=== PATIENT | male | born 1990 | race Two or more races ===

== ENCOUNTER 2021-10-27 15:15 | Outpatient (REF) | payer MEDICAID, SELFPAY ==
[2021-10-27 15:42] LABS: Binax Internal Control QC Valid; Binax Lot number: 9864; Binax Now Covid-19 Ag Negative (Negative)
== END 2021-10-27 15:16 | disposition home or self-care (01) ==
LOC: HO.LAB 15:15
PROVIDERS: Visit Provider Internal Medicine
DX: Z20.822 Contact with and (suspected) exposure to COVID-19 (principal)
CPT/HCPCS: C9803

== ENCOUNTER 2021-11-18 00:04 | Emergency (ER) | payer MEDICAID, SELFPAY ==
[2021-11-18] VITALS (11 sets, daily range): BP systolic 95–128; BP diastolic 57–79; PULSE 74–100; RESP 8–17; TEMP 37.6; O2SAT 95–99; BMI 22.8
--- NOTE | ~2021-11-18 | XR_ITS ---
EXAMINATION: XR HAND, RIGHT CLINICAL INFORMATION: Realignment COMPARISON: 11/18/2021 TECHNIQUE: AP and lateral views of the right hand. XR/XR hand RT 2V FINDINGS/IMPRESSION: On the lateral view there is residual dorsal dislocation of the suspected fourth and fifth metacarpals at the carpometacarpal articulation, though the degree of displacement appears decreased from prior. Redemonstrated overlying soft tissue swelling. There may be an associated vertically oriented fracture at the base of the fourth metacarpal.
--- NOTE | ~2021-11-18 | XR_ITS ---
EXAMINATION: XR HAND, RIGHT CLINICAL INFORMATION: Post reduction COMPARISON: 11/18/2021 TECHNIQUE: AP and lateral views of the right hand. XR/XR hand RT 2V FINDINGS/IMPRESSION: Overlying cast material obscures fine bony detail. There is improved alignment across the fourth and fifth carpometacarpal articulations compared to prior imaging; alignment now appears anatomic without appreciable residual dislocation. Adjacent soft tissue swelling redemonstrated. No definite acute fracture is seen.
--- NOTE | ~2021-11-18 | XR_ITS ---
EXAMINATION: X-RAY RIGHT HAND/WRIST CLINICAL INFORMATION: Punched brick wall, deformity, swelling and pain. COMPARISON: Radiograph of the right hand dated from 03/06/2014. TECHNIQUE: PA, oblique and lateral views of the right wrist/hand were obtained. FINDINGS: Swelling of the hypothenar surface of the hand. No unexpected radiopaque foreign bodies or subcutaneous air. Chronic deformity of the fourth metacarpal bone which is shortened and thickened. No acute fractures or malalignment. The carpal rows are maintained. The scapholunate interval is within normal limits. XR/XR hand wrist RT IMPRESSION: Hypothenar swelling. No acute fractures or malalignment.
--- NOTE | 2021-11-18 00:32 | PC.NURSE ---
COLD PACK GIVEN TO HAND FOR COMFORT.
--- NOTE | 2021-11-18 00:56 | ED_ITS ---
HPI - Extremity Problem General Chief complaint: Extremity Injury, Upper <ILDEFONSO Adamson Last Filed: 11/18/21 03:56> Stated complaint: hand injury <ILDEFONSO Adamson Last Filed: 11/18/21 03:56> Time Seen by Provider: 11/18/21 00:56 <ILDEFONSO Adamson Last Filed: 11/18/21 03:56> Source: patient <ILDEFONSO Adamson Last Filed: 11/18/21 03:56> Mode of arrival: ambulatory <ILDEFONSO Adamson Last Filed: 11/18/21 03:56> Limitations: no limitations <ILDEFONSO Adamson Last Filed: 11/18/21 03:56> History of Present Illness HPI Narrative: This is a 31-year-old male presenting to department with right-sided hand pain status post punching a wall at around midnight. Patient tells me he was aggravated and decided to punch a wall he immediately noted a deformity they the area pain and swelling. He reports 10/10 pain. Worse w/ movement better at rest. No numbness or tingling. He is still able to feel all his fingers on the right hand and wiggle them. He tells me he recently dislocated a bone in that hand it was reduced. He appears very uncomfortable. Right hand dominant <ILDEFONSO Adamson Last Filed: 11/18/21 03:56> MD Complaint: joint swelling and joint paint <ILDEFONSO Adamson Last Filed: 11/18/21 03:56> Onset (ago): hour(s) (1) <ILDEFONSO Adamson Last Filed: 11/18/21 03:56> Pain Consistency: constant <ILDEFONSO Adamson Last Filed: 11/18/21 03:56> Location: right <ILDEFONSO Adamson Last Filed: 11/18/21 03:56> Severity scale (1-10): >10 <ILDEFONSO Adamson Last Filed: 11/18/21 03:56> Quality: constant <ILDEFONSO Adamson Last Filed: 11/18/21 03:56> Radiation: none <ILDEFONSO Adamson Last Filed: 11/18/21 03:56> Relieving factors: nothing <ILDEFONSO Adamson Last Filed: 11/18/21 03:56> Exacerbating factors: nothing <ILDEFONSO Adamson Last Filed: 11/18/21 03:56> Associated symptoms: denies other symptoms <ILDEFONSO Adamson Last Filed: 11/18/21 03:56> Related Data Home medications: Previous Rx's Medication Instructions Recorded morphine 15 mg immediate release 15 mg PO Q8H PRN #6 tab 11/18/21 tablet <ILDEFONSO Adamson Last Filed: 11/18/21 03:56> Allergies/Adverse reactions: Allergies Allergy/AdvReac Type Severity Reaction Status Date / Time Fish Containing Products Allergy Unknown HIVES Verified 11/18/21 03:18 shellfish derived Allergy Unknown HIVES Verified 11/18/21 03:18 <ILDEFONSO Adamson Last Filed: 11/18/21 03:56> Review of Systems Verdana 4l Review of Systems: Verdana 4d Verdana 4d Constitutional : No Weight loss, No Fever, No Chills, No Fatigue, No Malaise Cardiovascular : No Chest Pain, No SOB, No Dyspnea on Exertion, No Orthopnea, No Edema, No Palpitations Respiratory : No Cough, No Sputum, No Wheezing GastrointestinalGastrointestinal : No Nausea, No Vomiting, No Diarrhea, No Constipation, No abdominal Pain, No Hematochezia, No Melena Genitourinary : No Dysuria, No Urinary Frequency, No Hematuria, Musculoskeletal : + joint pain, No Myalgias, + Joint Swelling Skin : No Skin Lesions, No rash Neuro : No Weakness, No Numbness, No Dizziness, No Headache All other systems reviewed and are negative <ILDEFONSO Adamson Last Filed: 11/18/21 03:56> Yes all other systems are reviewed and are negative <ILDEFONSO Adamson Last Filed: 11/18/21 03:56> [facility] Past Medical History Attestation statement: The following information was validated with the patient. <ILDEFONSO Adamson - Last Filed: 11/18/21 03:56> Source: old records reviewed and nursing notes reviewed <ILDEFONSO Adamson - Last Filed: 11/18/21 03:56> Medical History: Medical History Hand fracture, right <ILDEFONSO Adamson - Last Filed: 11/18/21 03:56> Social History Social History: Social History Advance Directives: No Advance Directives Information Provided: No <ILDEFONSO Adamson - Last Filed: 11/18/21 03:56> Physical Exam Verdana 4l Vital Signs: Verdana 4d Verdana 4d Vital Signs: Verdana 4d Verdana 4Bd Last Vital Signs Verdana 4d Nutritional Health Coach New 4d Nutritional Health Coach New 4d Temp 99.6 F 11/18/21 00:10 Nutritional Health Coach New 4d Pulse 84 11/18/21 04:55 Nutritional Health Coach New 4d Resp 16 11/18/21 04:55 BP 100/59 L 11/18/21 04:55 Pulse Ox 99 11/18/21 04:55 BMI result Body Mass Index 22.8 VSS <ILDEFONSO Adamson - Last Filed: 11/18/21 03:56> Vital Signs: Last Vital Signs Temp 99.6 F 11/18/21 00:10 Pulse 84 11/18/21 04:55 Resp 16 11/18/21 04:55 BP 100/59 L 11/18/21 04:55 Pulse Ox 99 11/18/21 04:55 BMI result Body Mass Index 22.8 <Jevon Robles MD - Last Filed: 11/18/21 05:10> Appearance: Alert.? Oriented X3.? No acute distress.?+ patient appears uncomfortable Head: Normocephalic, atraumatic, no step-offs or deformities Neck: Normal inspection.? Neck supple.? CVS: Normal heart rate and rhythm.? Pulses normal.? Respiratory: No respiratory distress.? Breath sounds normal.? Abdomen: Soft and nontender.? Skin: Skin warm and dry.? Normal skin color.? Normal skin turgor.? Extremities: No lower extremity edema.? No calf ttp. 5/5 strength to bilateral upper and lower extremities. Full rom to bilateral wrist and fingers. + pain to palpation overlying 3-5th metacarpals on right hand + deformity overlying 3-5th metabarpals on right hand. 2+ radial pulses bilaterally. Capilary refil < 2 seconds b/l. No evident ligament or tendon involvement Back: No midline tenderness, no C-spine tenderness, full range of motion, no CVA tenderness bilaterally Neuro: Oriented X 3.? No motor deficit.? No sensory deficit. <ILDEFONSO Adamson - Last Filed: 11/18/21 03:56> Course Reevaluation(s) Reevaluation #1: Initial x-ray reads swelling to hypothenar area of the right hand. To me it appears as though there is likely a sublux or dislocation will reach out to [facility] for clarification <ILDEFONSO Adamson - Last Filed: 11/18/21 03:56> Time: 00:42 <ILDEFONSO Adamson - Last Filed: 11/18/21 03:56> Reevaluation #2: Spoke with Dr. Rashid, will add an addendum appears as though there is a posterior dislocation of the 3rd and 4th CMC joints. Will TT Kath miranda. 01:35 Kath recommends reduction and outpatient follow up. <ILDEFONSO Adamson - Last Filed: 11/18/21 03:56> Time: 01:31 <ILDEFONSO Adamson - Last Filed: 11/18/21 03:56> Reevaluation #3: Conscious sedation done with Dr. Robles at the bedside. Received consent, respiratory at the bedside, time-out performed. Reduction done with flexion, and counter traction. Patient tolerated procedure well. Placed in ulnar gutter splint. <ILDEFONSO Adamson - Last Filed: 11/18/21 03:56> Time: 03:44 <ILDEFONSO Adamson - Last Filed: 11/18/21 03:56> Additional Reevaluation(s): Sign out given to Dr. Robles. Pending improvement and post reduction film. <ILDEFONSO Adamson - Last Filed: 11/18/21 03:56> MDM - Extremity (Nontraumatic) [facility] Narrative Medical decision making narrative: 0100 31 yo right hand dominant male presents with right hand pain s/p punching a wall. PE- full rom to bilateral wrist and fingers. There is pain to palpation overlying 3-5th metacarpals on right hand also a deformity overlying 3-5th metacarpal on right hand. 2+ radial pulses bilaterally. Capilary refil < 2 seconds b/l. No evident ligament or tendon involvement Plan- imaging, pain medication, likely reduction as this appears dislocated <ILDEFONSO Adamson - Last Filed: 11/18/21 03:56> Medical Records Attestation: I reviewed the patient's medical records. <ILDEFONSO Adamson - Last Filed: 11/18/21 03:56> Lab Data Attestation: I reviewed the patient's lab results. <ILDEFONSO Adamson - Last Filed: 11/18/21 03:56> Procedures Orthopedic Fracture Reduction Right hand 3rd, 4th MC dislocation: Time Out Performed: Yes <Jevon Robles MD - Last Filed: 11/18/21 05:10> Side: right <Jevon Robles MD - Last Filed: 11/18/21 05:10> Fracture Reduction Location: metacarpal (3rd, 4th MCP dislocation) <Jevon Robles MD - Last Filed: 11/18/21 05:10> Analgesia: procedural sedation <Jevon Robles MD - Last Filed: 11/18/21 05:10> Technique: direct manipulation and traction/counter-traction <Jevon Robles MD - Last Filed: 11/18/21 05:10> Post Reduction X-rays Demonstrate: anatomical reduction <Jevon Robles MD - Last Filed: 11/18/21 05:10> Post-reduction neuro exam: intact <Jevon Robles MD - Last Filed: 11/18/21 05:10> Post-reduction vascular exam: intact <Jevon Robles MD - Last Filed: 11/18/21 05:10> Splint Applied: Yes <Jevon Robles MD - Last Filed: 11/18/21 05:10> Additional Comments: The patient gave written informed consent for procedural sedation. Pre sedation physical exam was filled out prior to starting the procedure pain. A time-out was performed. The patient was given propofol a total of 120 mg IV. Using a direct male it in a mcclellan traction countertraction technique the MCP dislocations were reduced. Patient was placed in an ulnar gutter splint. Three layers of cast padding were used and ortho glass was used to make the splint. The patient tolerated the procedure well. The patient's neurologic exam post splint procedure is normal. The patient is fully recovered, he is awake and alert and ready for discharge. <Jevon Robles MD - Last Filed: 11/18/21 05:10> Critical Care Time Critical Care Time Critical Care Time: Yes <ILDEFONSO Adamson - Last Filed: 11/18/21 03:56> Total Critical Care Time: 45 <ILDEFONSO Adamson - Last Filed: 11/18/21 03:56> Attestation: Reviewing patient's history, physical exam reviewing imaging, speaking to Ortho, performing a bedside reduction with conscious sedation. <ILDEFONSO Adamson - Last Filed: 11/18/21 03:56> Discharge Plan Discharge Clinical Impression: Dislocation of carpometacarpal joint <ILDEFONSO Adamson - Last Filed: 11/18/21 03:56> Patient Disposition: Home, Self-Care <ILDEFONSO Adamson - Last Filed: 11/18/21 03:56> Additional Instructions: Take your medications as prescribed. If you were prescribed antibiotics today, it is important that you take your medication to their entirety, do not skip any doses, do not finish them early. Follow-up with your primary care provider this week. Call the on-call orthopedic surgeon, Dr. Hurst on Saturday to try to make a follow-up appointment within a week. Return to the emergency department with new or worsening symptoms. Such as severe pain, inability to wiggle fingers, swelling, numbness or tingling to hand. Or any new or worsening symptoms. In case of emergency call 911 <ILDEFONSO Adamson - Last Filed: 11/18/21 03:56> Prescriptions: New morphine 15 mg tablet 15 mg PO Q8H PRN (Reason: pain, severe) Qty: 6 0RF Rx Instructions: Patient can partially filled prescription upon request. <ILDEFONSO Adamson - Last Filed: 11/18/21 03:56> Referrals: Jag Hurst MD [Physician] - 2 days Physician,None [Primary Care Provider] - 2 days <ILDEFONSO Adamson - Last Filed: 11/18/21 03:56> Stand Alone Forms: Work/School Release <ILDEFONSO Adamson - Last Filed: 11/18/21 03:56>
--- NOTE | 2021-11-18 01:03 | PC.NURSE ---
REPORT GIVEN TO LANETTE CARTER WHO WILL RESUME PT CARE.
[2021-11-18] MEDS: oxyCODONE HCl Immed Release 5 MG TABLET PO (01:17)
[2021-11-18] MEDS: Lidocaine HCl 2 % MPF 5 ML VIAL SUBCUT ×3 (01:35)
--- NOTE | 2021-11-18 01:36 | PC.NURSE ---
lidocaine given by provider.
[2021-11-18] MEDS: LORazepam 0.5 MG TABLET PO (02:32)
[2021-11-18] MEDS: Nicotine 14 MG PATCH.TD24 TRANSDERMA (02:32)
--- NOTE | 2021-11-18 02:41 | PC.NURSE ---
pt hand attempted to reset, pending xray.
[2021-11-18] MEDS: propofoL 200 MG/20 ML VIAL 120 MG IVPUSH (03:37)
--- NOTE | 2021-11-18 03:44 | PC.NURSE ---
03:22pm time out completed, pt placed on n.c 2 liters. 03:25am 60mg of propofol, 111/69 90 15cap, 03:26 20mg of propofol, 3:28am 20mg of propofol, 3:29am 20mg of propofol. 102/62 99hr 19R 100 2l nc. Pt R hand was dislocated and placed back and splint by provider. Please see additional documentation by LANETTE Winkler..
--- NOTE | 2021-11-18 03:54 | PC.NURSE ---
Procedure between 321 and 330. Pt attached to child monitor, pulse ox, EtCO2, BP cycling Q 5 min. Consents complete. Suction, airway and code supplies at bedside. Pre-, intra-, and post-procedure vitals as charted. Splint applied. Repeat XR at bedside at this time. Pt alert and following commands, briefly disoriented during procedure, maintaining airway throughout
--- NOTE | 2021-11-18 03:59 | PC.NURSE ---
total 140 mg propofol given - 60 mg pre-procedure and then 20 mg x 4 intra-procedure
[2021-11-18] MEDS: Ibuprofen 600 MG TABLET PO (05:14)
== END 2021-11-18 05:27 | disposition home or self-care (01) ==
PROVIDERS: Emergency Provider Emergency Medicine Emergency Medical Services
DX: S63.264A Dislocation of metacarpophalangeal joint of right ring finger, initial encounter (principal); S63.262A Dislocation of metacarpophalangeal joint of right middle finger, initial encounter; W22.09XA Striking against other stationary object, initial encounter; Y93.9 Activity, unspecified; Y92.9 Unspecified place or not applicable; Y99.9 Unspecified external cause status
CPT/HCPCS: 26705; 29125; 73110; 73120; 73130; 99152; 99284; 99291

== ENCOUNTER → 2021-11-22 15:14 | Outpatient (BNVA) | payer MEDICAID, SELFPAY | PROVIDERS: Visit Provider Orthopaedic Surgery | DX: S63.054A Dislocation of other carpometacarpal joint of right hand, initial encounter (principal) | CPT/HCPCS: 99202 ==

== ENCOUNTER 2021-11-27 08:17 | Day surgery (SDC) | payer MEDICAID, SELFPAY ==
--- NOTE | 2021-11-24 10:59 | HO.ANESPROP2 ---
Documented by User: Christen Rivera NP 11/24/21 11:00 HPI - Anesthesia Eval Consult details Narrative: 31yo M for Right 4th and 5th Finger closed vs ORIF FX [facility] Active Problems Active Problems: All Active Problems (Updated 11/22/21 @ 15:29 by Shirley Cheng MD) Closed dislocation of fifth carpometacarpal joint of right hand (Acute) Closed dislocation of fourth carpometacarpal joint of right hand (Acute) Past Medical History Medical History (Updated 11/22/21 @ 15:29 by Shirley Cheng MD) Acute migraine Hand fracture, right Social History Social History (Updated 11/22/21 @ 15:26 by ROSAS Iraheta) Patient Tobacco Use Status: Current someday Tobacco user Tobacco use type: Cigarette Cigarettes Per Day: 2 Use of substances other than those prescribed or required for medical reasons: No Are you DNR?: Yes Advance Directives: No Advance Directives Information Provided: Yes Current occupational status: unemployed Current occupation: rt hand Meds Allergies Allergy/AdvReac Type Severity Reaction Status Date / Time Fish Containing Products Allergy Unknown HIVES Verified 11/22/21 15:26 shellfish derived Allergy Unknown HIVES Verified 11/22/21 15:26 Exam Exam Date and Time: November 24, 2021 1059 Assessment and Plan Assessment Anesthesia Assessment: Chart Reviewed Documented by User: Juan David Hylton MD 11/27/21 09:54 [facility] Past Medical History Medical History (Updated 11/22/21 @ 15:29 by Shirley Cheng MD) Acute migraine Hand fracture, right Family History Family history of problems with anesthesia: No Surgical History History of Problems with Anesthesia: No Social History Social History (Updated 11/22/21 @ 15:26 by ROSAS Iraheta) Patient Tobacco Use Status: Current someday Tobacco user Tobacco use type: Cigarette Cigarettes Per Day: 2 Use of substances other than those prescribed or required for medical reasons: No Are you DNR?: Yes Advance Directives: No Advance Directives Information Provided: Yes Current occupational status: unemployed Current occupation: rt hand Meds Allergies Allergy/AdvReac Type Severity Reaction Status Date / Time Fish Containing Products Allergy Unknown HIVES Verified 11/22/21 15:26 shellfish derived Allergy Unknown HIVES Verified 11/22/21 15:26 Exam Airway Mallampati Class: I TM Dist: >3cm Neck ROM: Full Assessment and Plan Assessment Anesthesia Assessment: Anesthesia Plan Discussed and Smoking Cess. Discussed Final Anesthetic Review Family History of Problems with Anesthesia: No History of Problems with Anesthesia: No NPO: Yes ASA Class: I and II Final Preanesthetic Review: No Changes in Pt Med Stat, Meds/Allgs Chart Reviewed, Consent Obtained/Reviewed and Anes Risks/Benef Reviewed Patient Risk: Low Procedure Risk: Low Anesthetic Plan Anesthetic Plan: GA Disposition: Standard PACU
[2021-11-27] VITALS (13 sets, daily range): BP systolic 112–122; BP diastolic 67–83; PULSE 61–82; RESP 12–20; TEMP 36.3–36.6; O2SAT 96–100; BMI 22.7
--- NOTE | ~2021-11-27 | FL_ITS ---
EXAMINATION: XR FLUOROSCOPY WITH IMAGES CLINICAL INFORMATION: ORIF right 4th and 5th fingers. COMPARISON: Previous x-ray 11/18/2021. TECHNIQUE: Fluoroscopy performed by Dr. Cheng. Fluoroscopy time: 1 minutes DAP: [id number] uGy-cm2 Images: 9 FINDINGS: Images demonstrate K wires across the 4th and 5th RETIREMENT joints and across the base of the 4th and 5th metacarpal bones. FL/FL guidance in OR IMPRESSION: Fluoroscopic guidance for ORIF of right hand.
[2021-11-27] MEDS: Lactated Ringers 1,000 ML 100 ML IVCONT (08:56)
--- NOTE | 2021-11-27 09:55 | MHC.SHP ---
Pre-Procedural Eval Section A Date of Service: 11/27/21 The patient is an INPATIENT: No The History & Physical has been completed within 30 days and I have reviewed it.: Yes Section B Chief Complaint: dislocation carpometacarpal joint Allergies: Allergies Allergy/AdvReac Type Severity Reaction Status Date / Time Fish Containing Products Allergy Unknown HIVES Verified 11/22/21 15:26 shellfish derived Allergy Unknown HIVES Verified 11/22/21 15:26 Plan I have reviewed the history and physical and performed a pertinent physical examination on my patient. No changes have occurred unless specified.
--- NOTE | 2021-11-27 09:57 | P.OP_ITS ---
Operative Note Operative Note Date of Service: 11/27/21 Narrative: Operative Note Narrative: Preop diagnosis: 1. right 4th CMC joint dorsal dislocation 2. Right 5th CMC joint dorsal dislocation Postop diagnosis: Same Procedure: 1. right 4th CMC joint closed reduction percutaneous pinning 2. right 5th CMC joint closed reduction percutaneous pinning 3. Ulnar nerve block Surgeon: Shirley Cheng MD Anesthesia: General Findings: Metacarpal fracture Implants: 0.062 K-wires times 3 Tourniquet time: None EBL: Minimal Specimen: None Drains: None Complications: None Disposition: Brought to the recovery room in stable condition Plan: Follow-up in 10-14 days for a wound check, postop radiographs and for placement in a short-arm cast or splint Anticipate K-wire removal After 6 weeks postop he will then need a removable wrist splint and activity modification for An additional 4-6 weeks, or until 10-12 weeks postop. the patient has a court date and may be going [facility] [place] [facility] the end of this month. We should provide him with a letter indicating that he does have K-wires in place beneath the cast and that the cast needs to be kept clean and dry. He should also receive immediate medical attention if there is any concern about a possible infection. Indications: The patient is [age] years old with right 4th and 5th CMC dorsal dislocations. . The risks and benefits of operative treatment, including but not limited to risk of damage to blood vessels, nerves, tendons, infection, recurrence, delayed or nonunion of fracture, persistent pain or numbness, incomplete resolution of preoperative symptoms, or need for further surgery were discussed with the patient and they wished to proceed with surgery. Procedure: Once consent was obtained patient was brought back to the operating suite and placed in the operating table in a supine position. . Perioperative antibiotics and general anesthesia was administered by the anesthesia team. A tourniquet was applied to the proximal aspect of the Right upper extremity and the limb was prepped and draped in a standard surgical fashion. Tourniquet was not inflated during the case. The FluoroScan was used during the case to assist with our fracture reduction and placement of all implants. A closed reduction was performed , reducing the patient's 4th and 5th CMC dorsal dislocations. the 1st 0.062 K-wire was placed obliquely and angled retrograde from the ulnar aspect of the 5th metacarpal shaft , across the CMC joint and into the hamate and capitate. Second 0.062 K- wire was similarly placed from the ulnar aspect of the 5th metacarpal shaft and advanced retrograde and obliquely across the CMC joint and into the hamate. once satisfied with the placement of these K-wires under fluoroscopic imaging I then placed a 3rd 0.062 K-wire transversely from the ulnar base of the 5th metacarpal across the 4th metacarpal base and into the 3rd metacarpal base, securing our reduction. Fluoroscopic images were again assessed. Fracture alignment was assessed for both angular and rotational malalignment. Once satisfied with our fracture reduction and implant placement, the K-wires were bent and cut short and pin caps applied. Final fluoroscopic images were then obtained. The wounds were copiously irrigated with normal saline. An ulnar nerve block was then performed by infiltrating about the ulnar nerve at the wrist with some 1% lidocaine with epinephrine for postop pain control. A Sterile dressing and short volar splint was applied. The patient appears to have tolerated the procedure well and with no complications. All digits were well vascularized at the conclusion of the case.
[2021-11-27] MEDS: fentaNYL citrate/PF 100 MCG/2 ML VIAL 50 MCG IVPUSH ×3 (11:50→12:44)
[2021-11-27] MEDS: oxyCODONE HCl Immed Release 5 MG TABLET 10 MG PO (11:50)
[2021-11-27] MEDS: ondansetron HCL 4 MG/2 ML VIAL IVPUSH (11:51)
== END 2021-11-27 13:36 | disposition home or self-care (01) ==
PROVIDERS: Visit Provider Orthopaedic Surgery
PROC: (CPT 26675; principal; 2021-11-27 07:30)
DX: S63.054A Dislocation of other carpometacarpal joint of right hand, initial encounter (principal); W22.09XA Striking against other stationary object, initial encounter; Y93.89 Activity, other specified; Y92.9 Unspecified place or not applicable; Y99.8 Other external cause status; G43.909 Migraine, unspecified, not intractable, without status migrainosus; F17.210 Nicotine dependence, cigarettes, uncomplicated
CPT/HCPCS: 26675 ×2; J0690; J1100; J2250; J2405; J3010

== ENCOUNTER 2021-12-06 11:10 | Outpatient (REF) | payer MEDICAID, SELFPAY ==
--- NOTE | ~2021-12-06 | XR_ITS ---
EXAMINATION: XR hand RT min 3V CLINICAL INFORMATION: Pain COMPARISON: Hand radiographs 11/18/2021 TECHNIQUE: 3 views of the hand XR/XR hand RT min 3V FINDINGS/IMPRESSION: Surgical wires are fixating the base of the third through fifth metacarpals and the third and fourth carpometacarpal joints, in anatomic alignment. No acute fracture or dislocation. No evidence of hardware fracture or complication. Soft tissues are unremarkable.
== END 2021-12-06 11:11 | disposition home or self-care (01) ==
LOC: HO.HOSX 11:10
PROVIDERS: Visit Provider Physician Assistant
DX: M79.641 Pain in right hand (principal); F17.210 Nicotine dependence, cigarettes, uncomplicated; Z91.013 Allergy to seafood; S63.054A Dislocation of other carpometacarpal joint of right hand, initial encounter; X58.XXXA Exposure to other specified factors, initial encounter; Y93.9 Activity, unspecified; Y92.9 Unspecified place or not applicable; Y99.9 Unspecified external cause status
CPT/HCPCS: 29085; 73130; 99212

== ENCOUNTER 2022-01-10 08:30 | Outpatient (REF) | payer OTHER, SELFPAY ==
--- NOTE | ~2022-01-10 | XR_ITS ---
EXAMINATION: XR HAND, RIGHT CLINICAL INFORMATION: Dislocation. Pain. COMPARISON: Previous x-rays most recent 12/06/2021 TECHNIQUE: PA, lateral, and oblique views of the right hand. FINDINGS: There are K wires or pins through the base of the third fourth and fifth metacarpal bones and across the fourth and fifth PENITENTIARY joints. Orthopedic hardware appears unchanged. Bone alignment is normal. No fracture is seen. There is increasing osteopenia. Soft tissues are unremarkable. XR/XR hand RT min 3V IMPRESSION: Stable postsurgical changes.
== END 2022-01-10 08:31 | disposition home or self-care (01) ==
LOC: HO.HOSX 08:30
PROVIDERS: Visit Provider Orthopaedic Surgery
DX: S63.054D Dislocation of other carpometacarpal joint of right hand, subsequent encounter (principal)
CPT/HCPCS: 73130; 99212